=== PATIENT | female | born 1955 | race Caucasian/White ===

== ENCOUNTER → 2017-07-01 | Outpatient (CLI) | payer OTHER ==
[~2017-07-01] MED LIST: CELEXA PO; DARVOCET-N 1001 TAB PO; SYNTHROID PO
--- NOTE | ~2017-07-01 | CR181 ---
[facility] A Service of [facility] & [facility] RADIOLOGY TEXT RESULTS PATIENT: SONIDO MARTÍNEZ LOCATION: [facility] : 59 UNIT #: [id number] AGE: [address]: MANDIE MARTINEZ APRN SEX: F ORDER DR: [id number] [facility] [address]. [place], [place] [address] [id number] O MR#: [id number] Acc #: [id number] NAME: SONIDO MARTÍNEZ. : 1955 SEX: F STUDY DATE/TIME: 07/01/2017 9:27 UNIT: [facility] ROOM: STUDY DESCRIPTION: CR Lumbar Spine 2 or 3 Views Attending Physician: Mandie Martinez Aprn Referring Physician: Mandie Martinez Aprn Ordering Physician: Mandie Martinez Aprn Primary Care Physician: Mandie Martinez Aprn MEDICAL IMAGING REPORT This report is preliminary unless electronic signature is present EXAM Lumbar spine, 3 views; 07/01/2017. HISTORY Low back pain with right lower extremity radiculopathy extending to the right hip for one year, worsening in the last 2 months. No known injury. FINDINGS Three views of the lumbar spine demonstrate no fracture. There is a 5 mm retrolisthesis of L3 on L4 which is likely due to facet arthropathy. There is degenerative change with mild disc space narrowing at L3-4. Small marginal osteophytes are seen throughout the lumbar spine and there is degenerative change involving the articular facets. IMPRESSION Degenerative change in the lumbar spine. No acute abnormality. Dictated by... Sean Drake M.D. THIS IS AN ELECTRONICALLY VERIFIED REPORT Sean Drake M.D. at 07/02/2017 7:55 AM IRIS/jan TD: 07/01/2017 15:50 JOB #: [id number] MEDICAL IMAGING REPORT Page 1 of 1 COPY
== END | disposition home or self-care (01) ==
LOC: CRAD 09:18
DX: M54.9 Dorsalgia, unspecified (principal); M47.896 Other spondylosis, lumbar region
CPT/HCPCS: 72100

== ENCOUNTER → 2017-07-06 | Outpatient (CLI) | payer OTHER ==
--- NOTE | ~2017-07-06 | MY29 ---
[facility] A Service of [facility] & [facility] RADIOLOGY TEXT RESULTS PATIENT: SONIDO MARTÍNEZ LOCATION: [facility] : 59 UNIT #: [id number] AGE: [address]: MANDIE MARTINEZ APRN SEX: F ORDER DR: [id number] [address] [place], [place] [address] [id number] O MR#: [id number] Acc #: [id number] NAME: SONIDO MARTÍNEZ : 1955 SEX: F STUDY DATE/TIME: 07/06/2017 14:42 UNIT: [facility] ROOM: STUDY DESCRIPTION: MY MIKEY SCREENING W/ CAD BILAT Attending Physician: Mandie Martinez Aprn Ordering Physician: Mandie Martinez Aprn Primary Care Physician: Mandei Martinez Aprn MEDICAL IMAGING REPORT This report is preliminary unless electronic signature is present EXAM Bilateral digital screening mammogram with CAD. COMPARISON Outside mammograms performed at [address], [facility] date May 31, 2009 and May 07, 2009. INDICATION Breast cancer screening. 61-year-old asymptomatic female who reports a sister with triple negative breast cancer. FINDINGS There are scattered fibroglandular densities. Overall, the fibroglandular tissue has involuted bilaterally. In the anterior third of the 2 o'clock right breast, there is a suspected developing mass measuring approximately 5 mm x 4 mm x 5 mm, as well as a separate right breast asymmetry in the middle third along the posterior nipple line only seen on MLO view measuring up to approximately 7 mm. There are no suspicious findings in the left breast. IMPRESSION 1. No mammographic evidence of malignancy in the left breast. 2. Selected developing right breast mass as well as a right breast asymmetry only seen on MLO view. Further evaluation with spot compression MLO view and spot compression CC view is recommended in addition to full field ML view. This may be followed by right breast ultrasound. Patients over the age of 40 are entered into a reminder system with target due date for the next mammogram. A result letter will also be sent to the patient. [facility] A Service of [facility] & [facility] RADIOLOGY TEXT RESULTS PATIENT: SONIDO MARTÍNEZ LOCATION: [facility] : 59 UNIT #: [id number] AGE: [address]: MANDIE MARTINEZ APRN SEX: F ORDER DR: BIRADS: 0 Incomplete; need additional imaging evaluation and/or prior mammograms for comparison. Dictated by... Preet Birmingham M.D. THIS IS AN ELECTRONICALLY VERIFIED REPORT Preet Birmingham M.D. at 07/07/2017 11:10 PM AASHISH/hedy TD: 07/07/2017 22:32 JOB #: [id number] MEDICAL IMAGING REPORT Page 1 of 1 COPY
== END | disposition home or self-care (01) ==
LOC: CWCC 13:45
DX: Z12.31 Encounter for screening mammogram for malignant neoplasm of breast (principal); Z80.3 Family history of malignant neoplasm of breast; N63 Unspecified lump in breast; N64.89 Other specified disorders of breast
CPT/HCPCS: G0202